=== PATIENT | male | born 2000 | race Caucasian/White ===

== ENCOUNTER 2023-07-12 15:20 | Emergency (ER) | payer MEDICAID ==
[~2023-07-12] VITALS: Ht 165.1 cm; Wt 64.0 kg
[2023-07-12 15:31] VITALS: BP 129/83; TEMP 98.3
[2023-07-12 15:55] LABS: HEMATOCRIT. 41.4 % (42.0-52.0); HEMOGLOBIN. 14.4 g/dL (14.0-18.0); MEAN CORPUSCULAR HEMOGLOBIN 30.6 pg (28.0-32.0); MEAN CORPUSCULAR HGB CONC 34.7 g/dL (31.0-37.0); MEAN CORPUSCULAR VOLUME 88.2 fL (80.0-94.0); MEAN PLATELET VOLUME 9.4 fl (7.4-10.4); PLATELET 224 x1000/uL (130-400); RED CELL DISTRIBUTION WIDTH 13.9 % (11.6-14.6); WHITE BLOOD COUNT 17.2 x1000/uL (4.5-11.0)
[2023-07-12 15:56] LABS: DIFFERENTIAL COMMENT 1
[2023-07-12 15:59] LABS: CHLORIDE 105 mEq/L (98-107); POTASSIUM 3.2 mEq/L (3.5-5.1); SODIUM 138 mEq/L (136-145)
[2023-07-12 16:00] LABS: CARBON DIOXIDE 21 mEq/L (21-32)
[2023-07-12 16:01] LABS: CALCIUM 9.7 mg/dL (8.7-10.4)
[2023-07-12 16:05] LABS: CREATININE 0.9 mg/dL (0.6-1.3); GLUCOSE 98 mg/dL (70-105); UREA NITROGEN BLOOD 7 mg/dL (9-23)
[2023-07-12 16:19] LABS: PLATELET ESTIMATE NORMAL
[2023-07-12 17:34] VITALS: PULSE 72; RESP 20; O2SAT 97
[2023-07-12] MEDS: ALBUTEROL (0.5%) 2.5MG/0.5ML NEB HHN ONE (17:34)
[2023-07-12] MEDS ORDERED: ALBU18HF2 IH (18:50)
[2023-07-12] MEDS ORDERED: P50 MT (18:50)
[2023-07-12] MEDS: METHYLPREDNISOLONE SOD SUCC 125MG/2ML (ACT-O-VIAL) IM ONE (19:00)
[2023-07-12] MEDS ORDERED: METHYLPREDNISOLONE SOD SUCC 125MG/2ML (ACT-O-VIAL) IM SCH (22:00)
== END 2023-07-12 20:45 | disposition home or self-care (01) ==
LOC: ER 15:20
DX: J45.901 Unspecified asthma with (acute) exacerbation (principal); Z88.0 Allergy status to penicillin
CPT/HCPCS: 80048; 85025; 36415; 71045; 94640; 93005; 96372; 99285; J2930; Z7610

== ENCOUNTER 2024-01-02 10:53 | Emergency (ER) | payer OTHER ==
[~2024-01-02] VITALS: Ht 165.1 cm; Wt 64.0 kg
[~2024-01-02 10:53] MED LIST: ALBU18HF2 IH; P50 MT
[2024-01-02 10:58] VITALS: TEMP 98.2; O2SAT 99
[2024-01-02 12:33] LABS: CLARITY URINE CLEAR (CLEAR); COLOR URINE YELLOW (YELLOW); GLUCOSE URINE NEGATIVE (NEGATIVE); KETONES URINE TRACE (NEGATIVE); LEUKOCYTE ESTERASE URINE NEGATIVE (NEGATIVE); NITRITE URINE NEGATIVE (NEGATIVE); OCCULT BLOOD URINE NEGATIVE (NEGATIVE); PROTEIN URINE NEGATIVE (NEGATIVE)
[2024-01-02 13:00] VITALS: BP 112/64; PULSE 68; RESP 16; O2SAT 99
[2024-01-06 04:08] LABS: HSV TYPE 1 SPECIFIC AB IGG Reactive (Non Reactive); HSV TYPE 2 SPECIFIC AB IGG Non Reactive (Non Reactive)
== END 2024-01-02 13:00 | disposition home or self-care (01) ==
LOC: ER 10:53
DX: Z11.3 Encounter for screening for infections with a predominantly sexual mode of transmission (principal); J45.909 Unspecified asthma, uncomplicated; Z88.0 Allergy status to penicillin
CPT/HCPCS: 36415; 81003; 86592; 86695; 86696; 87591; 99283